=== PATIENT | female | born 1995 | race Caucasian/White ===

== ENCOUNTER 2018-01-23 11:23 | Emergency (ER) | payer OTHER, MEDICAID ==
[2018-01-23] MEDS: ONDANSETRON (ODT) 4 MG TAB ODT (11:52)
[2018-01-23 11:55] LABS: URINE BLOOD (Dip) POC Negative (NEGATIVE); URINE GLUCOSE (Dip) POC Negative (NEGATIVE); URINE KETONES (Dip) POC 1+ (NEGATIVE); URINE LEUKOCYTE EST (Dip) POC Trace (NEGATIVE); URINE NITRITE (Dip) POC Negative (NEGATIVE); URINE TOTAL PROTEIN POC 2+ (NEGATIVE)
[2018-01-23 11:55] LABS: URINE PH (Dip) POC 7.5 (5.0-8.5)
== END 2018-01-23 13:13 | disposition home or self-care (01) ==
LOC: FTE 11:23
DX: R11.10 Vomiting, unspecified (principal)
CPT/HCPCS: 81003; 81025; 99283